=== PATIENT | male | born 1965 | race Caucasian/White ===

== ENCOUNTER 2025-04-23 16:05 | Emergency (ER) | payer BC ==
[~2025-04-23] VITALS: Ht 170.2 cm; Wt 83.9 kg
[2025-04-23] MEDS ORDERED: KETOROLAC TROMETHAMINE 15 MG INJ ONE (17:33)
[2025-04-23] MEDS ORDERED: METOCLOPRAMIDE HCL 10 MG/2 ML VIAL ONE (17:33)
[2025-04-23] MEDS: KETOROLAC TROMETHAMINE 15 MG INJ IVP ONE (17:40)
[2025-04-23] MEDS: METOCLOPRAMIDE HCL 10 MG/2 ML VIAL IV ONE (17:40)
[2025-04-23 18:03] LABS: BASOPHILS % (AUTO) 0.5 % (0.0-2.0); EOSINOPHILS # (AUTO) 0.1 K/uL (0.0-0.7); EOSINOPHILS % (AUTO) 2.4 % (0.0-7.0); HEMOGLOBIN 12.9 g/dL (12.5-16.3); LYMPHOCYTES # (AUTO) 1.1 K/uL (0.8-4.8); LYMPHOCYTES % (AUTO) 23.5 % (20.5-51.5); MEAN CORPUSCULAR HEMOGLOBIN 27.5 uug (23.8-33.4); MEAN CORPUSCULAR HGB CONC 34 g/dL (32.5-36.3); MEAN CORPUSCULAR VOLUME 81.1 fL (73.0-96.2); MONOCYTES # (AUTO) 0.8 K/uL (0.1-1.30); MONOCYTES % (AUTO) 16.4 % (0.0-11.0); NEUTROPHILS # (AUTO) 2.7 K/uL (1.8-8.9); NEUTROPHILS % (AUTO) 57.2 % (38.5-71.5); PLATELET COUNT (AUTO) 216 K/uL (152-348); RED BLOOD CELL COUNT(AUTO) 4.69 MIL/uL (4.06-5.63); RED CELL DISTRIBUTION WIDTH 13.9 % (12.1-16.2); WHITE BLOOD COUNT (AUTO) 4.8 K/uL (3.6-10.2)
[2025-04-23 18:11] LABS: DIFFERENTIAL COMMENT 1
[2025-04-23 18:23] LABS: ALANINE AMINOTRANSFERASE 43 U/L (16-63); ALBUMIN 3.2 g/dL (3.4-5.0); ALKALINE PHOSPHATASE 78 U/L (50-136); ASPARTATE AMINOTRANSFERASE 25 U/L (15-37); BILIRUBIN,DIRECT 0.1 mg/dL (0.0-0.2); BILIRUBIN,TOTAL 0.5 mg/dL (0.2-1.0); CALCIUM 8.9 mg/dL (8.5-10.1); CARBON DIOXIDE 30 mmol/L (21-32); CHLORIDE 99 mmol/L (98-107); CREATININE 0.8 mg/dL (0.6-1.3); GLUCOSE 112 mg/dL (74-106); SODIUM SERUM 139 mmol/L (136-145); TOTAL PROTEIN, SERUM 7.4 g/dL (6.4-8.2); UREA NITROGEN, BLOOD 20 mg/dL (7-18)
[2025-04-23 18:24] LABS: POTASSIUM 2.7 mmol/L (3.5-5.1)
[2025-04-23] MEDS ORDERED: IBUP-1957 PO (18:30)
[2025-04-23] MEDS ORDERED: METO-295 PO (18:30)
[2025-04-23] MEDS ORDERED: POTASSIUM CHLORIDE 20 MEQ TAB.PRT.SR ONE (18:49)
[2025-04-23] MEDS: POTASSIUM CHLORIDE 20 MEQ TAB.PRT.SR PO ONE (18:53)
[2025-04-23 18:54] VITALS: BP 119/68; O2SAT 97
[2025-04-23 19:46] LABS: EOSINOPHILS % (MANUAL) 1 % (0-8); LYMPHOCYTES % (MANUAL) 27 % (20-40); MONOCYTES % (MANUAL) 12 % (2-10); NEUTROPHILS % (MANUAL) 60 % (42-75); PLATELET ESTIMATE ADEQU
[2025-04-23 19:48] LABS: ANISOCYTOSIS 1+
== END 2025-04-23 18:55 | disposition home or self-care (01) ==
LOC: ER 16:05
DX: R51.9 Headache, unspecified (principal); Z79.1 Long term (current) use of non-steroidal anti-inflammatories (NSAID)
CPT/HCPCS: 99285; 96374; 70450; 96375; 80076; 80048; 85007; 85027; 85730; 87040; 84484; 36415; 93005; 83605; J1885; J2765; 70030-TC; 85025; A4606; A4663